=== PATIENT | female | born 1955 | race Caucasian/White ===

== ENCOUNTER → 2021-02-14 | Outpatient (CLI) | payer OTHER ==
[2021-02-14 17:06] LABS: TESTOSTERONE* < 3 ng/dL (3-67)
== END ==
LOC: LAB 08:31
PROVIDERS: ATTEND Obstetrics & Gynecology
DX: N95.1 Menopausal and female climacteric states (principal); R68.82 Decreased libido

== ENCOUNTER → 2021-03-17 | Outpatient (CLI) | payer OTHER | LOC: LAB 07:55 | PROVIDERS: ATTEND Obstetrics & Gynecology | DX: R68.82 Decreased libido (principal); N95.1 Menopausal and female climacteric states ==